=== PATIENT | female | born 1995 | race Caucasian/White ===

== ENCOUNTER → 2024-12-27 11:44 | Outpatient (CLI) | payer OTHER, SELFPAY ==
[2024-12-27 19:41] LABS: Alanine Aminotransferase 15 IU/L (<35); Albumin 4.2 g/dL (3.5-5.0); Albumin Globulin Ratio 1.4 (1.0-2.8); Alkaline Phosphatase 78 U/L (38-126); Blood Urea Nitrogen 18 mg/dL (7-17); Calcium 9.4 mg/dL (8.4-10.2); Carbon Dioxide 26 mmol/L (22-32); Chloride 102 mmol/L (98-107); Cholesterol 208 mg/dL (140-199); Estimated Glomerular Filt Rate > 60 mL/min (>60); Globulin 3.1 g/dL (1.7-4.1); Glucose 89 mg/dL (70-99); HDL Cholesterol 38 mg/dL (40-60); HEMOLYSIS 18 (0-50); Potassium 4.6 mmol/L (3.4-5.1); Sodium 137 mmol/L (137-145); Total Protein 7.3 g/dL (6.3-8.2); Triglycerides 109 mg/dL (35-150)
[2024-12-27 19:44] LABS: Add Manual Diff / Slide Review NO; Hematocrit 39.3 % (36-46); Hemoglobin 13.3 g/dL (12.0-16.0); Lymphocytes Absolute Auto 2300 /uL (1100-4500); Mean Corpuscular HGB Conc 34.0 % (30-36); Mean Corpuscular Hemoglobin 30.5 PG (26-34); Mean Corpuscular Volume 89.9 fL (80-100); Platelet Count 451 X10^3/uL (150-400)
[2025-01-01 15:36] LABS: ANA Screen, IFA Negative (.)
== END ==
PROVIDERS: PCP Family Medicine; Visit Provider Family Medicine
DX: R14.0 Abdominal distension (gaseous) (principal); R15.9 Full incontinence of feces; R19.5 Other fecal abnormalities; R35.0 Frequency of micturition
CPT/HCPCS: 80053; 80061; 83516; 85025; 85651; 86038

== ENCOUNTER 2025-02-14 08:52 | Day surgery (SDC) | payer OTHER, SELFPAY ==
--- NOTE | 2025-02-14 06:56 | P.HP_ITS ---
History of Present Illness
--- NOTE | 2025-02-14 06:56 | PM.HP.IH.1 ---
History of Present Illness History of Present Illness Date Patient Seen: 02/14/25 Time Patient Seen: 06:56 Chief complaint: SDC Narrative: Patient presents for screening colonoscopy today, possible internal hemorrhoid banding. [facility] Medical History (Updated 02/14/25 @ 06:57 by Floyd Dee MD) Benign atrial arrhythmia Frequent headaches Shrimp allergy Toe fracture Severe obesity with body mass index (BMI) of 35.0 to 39.9 with serious comorbidity HTN (hypertension) Decreased stool caliber Anaphylaxis Surgical History (Updated 12/22/24 @ 20:15 by Latasha Moody MD) H/O toe surgery Social History (Updated 12/21/24 @ 12:04 by NEETU Leon) additional social history: surgery for foot in 3 weeks: metal plate to be removed. [place] foot fracture. OI : couple months, property here lives in [place] most of the time -- unsure time line wt dr in [place] safe: yes tob: no alcohol: none substances: none PMHX: HTN chemical cardioversion -- ? SVT @ 22 yo BMI headaches no asthma + SHRIMP -- allergy needs epi pen -- does not have PSHX: toe fracture FHX: skin cancer - melanoma-- dad , brother + DM2, HTN, no cva or [place] no pap in more than 3 yrs 12/2024 Meds Home Medications and Allergies Home Medications ?Medication ?Instructions ?Recorded ?Confirmed ?Type tirzepatide (weight loss) 5 mg/0.5 5 mg SUBCUT QWEEK 12/07/24 02/11/25 History mL subcutaneous pen injector (Zepbound) bisoprolol fumarate 5 mg tablet 5 mg PO DAILY BP. take every day 12/21/24 02/11/25 Rx even if normal. #90 tabs epinephrine 0.3 mg/0.3 mL 0.3 mg (0.3 mL) IM Q5-15M PRN 12/21/24 02/11/25 Rx injection, auto-injector anaphylaxis, shell fish exposure #2 ea sodium,potassium,mag sulfates 17.5 See Rx Instructions PO .COMPLEX 01/01/25 02/11/25 Rx gram-3.13 gram-1.6 gram oral soln #354 mL (Suprep Bowel Prep Kit) nifedipine 30 mg tablet,extended 30 mg PO DAILY blood pressure. 02/11/25 02/11/25 Rx release take every day even if normal. #30 tabs Allergies Allergy/AdvReac Type Severity Reaction Status Date / Time shellfish derived Allergy Severe Anaphylaxis Verified 02/11/25 13:50 amlodipine AdvReac Intermediate Dizziness Verified 02/11/25 13:50 Exam Narrative Exam Narrative: Const General: comfortable Orientation: alert and oriented x3 Resp Effort & Inspection: normal respiratory effort and able to speak in complete sentences Cardio Rate: regular rate GI Palpation: soft (NT) Extrem General: no pedal edema and no calf tenderness Assessment & Plan Assessment and plan (1) Rectal bleeding: Status: Acute (2) Encounter for screening colonoscopy: Status: Acute Plan Plan screening colonoscopy, possible biopsy, possible internal hemorrhoid banding. The risks, benefits and options regarding the procedure were explained to the patient in detail. Risk discussion included but not limited to: bleeding, perforation, missed lesion, unable to reach cecum, hemorrhoid recurrence, pelvic sepsis, urinary retention. The patient was encouraged to ask questions and they were answered to their satisfaction. The patient understands and is agreeable to proceed. Time-Based Coding :: [TOTAL MINUTES] spent with patient and on the chart (including review of chart, obtaining history, exam, reviewing outside data, placing orders, documenting exam and treatment plan, and counseling patient) on [DATE]. PROFEE Order Entry Technician Document charge(s): Yes Charge Codes Inpatient/observation care including admit and discharge same day: [id number]
[2025-02-14 09:10] VITALS: BP 110/76; PULSE 94; RESP 18; TEMP 36.4; O2SAT 99
--- NOTE | 2025-02-14 09:42 | P.OP.COLON_ITS ---
Operative Date/Time/Diagnoses
--- NOTE | 2025-02-14 09:42 | PM.OP.COLON ---
Operative Date/Time/Diagnoses Date of procedure: 02/14/25 Time of procedure: 10:14 Pre-op diagnosis: Rectal bleeding Post-op diagnosis: other (sigmoid polyps, small internal hemorrhoids) Procedure & Clinicians Study performed: Colonoscopy with biopsy Same procedure(s) as scheduled: Yes Indications: 29yo F, rectal bleeding Surgeon: Floyd Dee Anesthesia Type: MAC +/- Procedure Notes SCOAP/Timeout: Performed Procedure in detail: Colonoscopy Patient placed in left lateral recumbent position. Time out was performed. Procedural sedation was administered by anesthesia. Examination began with a thorough inspection of the perianal area. There was no evidence of fissures, fistulae, external hemorrhoids or cutaneous malignancy. The colonoscope was then placed into the rectum and the lumen was insufflated with carbon dioxide. The scope was carefully advanced forward. Ultimately the cecum was intubated and confirmed by identification of the ileocecal valve, the appendiceal orifice and the confluence of the taenia. The scope was then slowly withdrawn examining the colon thoroughly in all directions. In the rectum, retroflexion of the scope was performed for inspection of the distal rectum and anal canal. ?Significant colonoscopy findings: ?1. Quality of the preparation-good, [place] 2-3, improved with irrigation/suction ?2. Multiple hyperplastic appearing polyps in sigmoid colon, 3mm, sessile, benign appearing. 3 polyps sampled with cold biopsy forceps 3. Internal hemorrhoids too small and too near anal verge, not candidates for banding Scope withdrawal time: 12 minutes Findings: internal hemorrhoids and polyp(s) Specimen(s): other (polyps) Estimated Blood Loss: 5 Complications: none Impression: Colon polyps Small internal hemorrhoids, not candidates for banding Post-procedure Recommendations: Colonoscopy in 10 years Plan for aftercare: PACU then home Follow up: as needed Disposition: PACU
[2025-02-14 10:12] VITALS: BP 89/54; PULSE 86; RESP 15; TEMP 36.2; O2SAT 98
[2025-02-14 10:17] VITALS: BP 95/55; PULSE 86; RESP 18; O2SAT 98
[2025-02-14 10:22] VITALS: BP 95/69; PULSE 89; RESP 16; O2SAT 99
[2025-02-14 10:27] VITALS: BP 98/68; PULSE 85; RESP 16; TEMP 36.2; O2SAT 99
== END 2025-02-14 10:47 | disposition home or self-care (01) ==
PROVIDERS: PCP Family Medicine; Referring Provider Surgery; Visit Provider Surgery
PROC: 0DJD8ZZ Inspection of Lower Intestinal Tract, Via Natural or Artificial Opening Endoscopic (ICD-10-PCS; CPT 45378; principal; 2025-02-14 09:45)
DX: K62.5 Hemorrhage of anus and rectum (principal); K64.8 Other hemorrhoids; K63.5 Polyp of colon
CPT/HCPCS: 45380; J2250; J2704